=== PATIENT | male | born 1930 | race African-American/Black ===

== ENCOUNTER 2018-01-15 20:15 | Emergency (ER) | payer OTHER ==
[2018-01-15] MEDS: KETOROLAC 15 MG INJ IV (23:03)
[2018-01-15] MEDS: morphine 4 MG/ML VIAL IV (23:03)
[2018-01-15] MEDS: METHOCARBAMOL 750 MG TAB PO (23:08)
== END 2018-01-16 02:03 | disposition home or self-care (01) ==
LOC: E/R 01-16 02:03
DX: M50.30 Other cervical disc degeneration, unspecified cervical region (principal); I10 Essential (primary) hypertension; I50.9 Heart failure, unspecified; M62.838 Other muscle spasm; Z87.891 Personal history of nicotine dependence
CPT/HCPCS: 72125; 93005; 96374; 96375; 99285-25

== ENCOUNTER 2018-05-06 13:36 | Inpatient (IN) | payer OTHER ==
[2018-05-06 14:11] LABS: ADD MAN DIFF? NO
[2018-05-06 14:12] LABS: WHITE BLOOD COUNT 4.1 10^3/ul (4.8-10.8)
[2018-05-06 14:12] LABS: ABNORMAL IP MESSAGE 1; BASOPHILS % 0.7 % (0.0-2.0); EOSINOPHILS # 0.1 10^3/ul (0.0-0.5); EOSINOPHILS % 1.2 % (0.0-7.0); HEMATOCRIT 37.1 % (42.0-52.0); HEMOGLOBIN 11.8 g/dl (14.0-18.0); LYMPHOCYTES # 1.5 10^3/ul (0.8-2.9); LYMPHOCYTES % 37.6 % (15.0-51.0); MEAN CORPUSCULAR HEMOGLOBIN 24.4 pg (29.0-33.0); MEAN CORPUSCULAR HGB CONC 31.8 g/dl (32.0-37.0); MEAN CORPUSCULAR VOLUME 76.7 fl (82.0-101.0); MONOCYTE # 0.4 10^3/ul (0.3-0.9); MONOCYTES % 9.1 % (0.0-11.0); NEUTROPHIL # 2.1 10^3/ul (1.6-7.5); NEUTROPHILS % 51.2 % (39.0-77.0); PLATELET COUNT 137 10^3/UL (140-415); POSITIVE DIFF @See below; RED BLOOD COUNT 4.84 10^6/ul (4.70-6.10); RED CELL DISTRIBUTION WIDTH 17.7 % (11.5-14.5)
[2018-05-06 14:30] LABS: ALANINE AMINOTRANSFERASE 32 IU/L (13-69); ALBUMIN 3.4 g/dl (3.3-4.9); ALBUMIN/GLOBULIN RATIO 1.13; ALKALINE PHOSPHATASE 75 IU/L (42-121); ANION GAP 10 (5-13); ASPARTATE AMINO TRANSFERASE 39 IU/L (15-46); BILIRUBIN,INDIRECT 0.4 mg/dl (0-1.1); BILIRUBIN,TOTAL 0.4 mg/dl (0.2-1.3); BLOOD UREA NITROGEN 10 mg/dl (7-20); CALCIUM 8.7 mg/dl (8.4-10.2); CARBON DIOXIDE 27 mmol/L (21-31); CHLORIDE 104 mmol/L (97-110); GLUCOSE 102 mg/dl (70-220); POTASSIUM 3.8 mmol/L (3.5-5.1); SODIUM 141 mmol/L (135-144); TOTAL PROTEIN 6.4 g/dl (6.1-8.1)
[2018-05-06] MEDS: NITROGLYCERIN 2% 1 GM OINT PKT TD (14:36)
[2018-05-06] MEDS: ASPIRIN 325 MG TAB PO (14:36)
[2018-05-06] MEDS: FUROSEMIDE 20 MG INJ IV (14:37)
[2018-05-06 14:42] LABS: B-TYPE NATRIURETIC PEPTIDE 3200 PG/ML (0-450); TROPONIN-I 0.084 ng/ml (0.000-0.120)
[2018-05-06] MEDS ORDERED: ONDANSETRON 4 MG INJ IV ×2 (16:30→18:00)
[2018-05-06] MEDS ORDERED: ACETAMINOPHEN 325 MG TAB PO ×2 (16:30→18:00)
[2018-05-06] MEDS ORDERED: MAGNESIUM HYDROXIDE 30ML CUP PO (18:00)
[2018-05-06] MEDS ORDERED: BISACODYL 10 MG SUPP PR (18:00)
[2018-05-06] MEDS ORDERED: NACL 0.9% 3 ML SYG IV (18:00)
[2018-05-06] MEDS ORDERED: HYDROCODONE/APAP (5/325) TAB PO (18:00)
[2018-05-06] MEDS ORDERED: METHOCARBAMOL 750 MG TAB PO (18:00)
[2018-05-06] MEDS ORDERED: DOCUSATE SODIUM 100 MG CAP PO (18:00)
[2018-05-06] MEDS: hydrALAzine 20 MG INJ IV (18:32)
[2018-05-06] MEDS: AMLODIPINE 10 MG TAB PO (19:41)
[2018-05-06] MEDS: ENALAPRILAT 1.25 MG INJ IV (19:43)
[2018-05-06 20:16] LABS: CREATINE KINASE 368 IU/L (23-200)
[2018-05-06] MEDS: ATORVASTATIN 40 MG TAB PO (20:16)
[2018-05-06] MEDS: LOSARTAN 50 MG TAB PO (20:17)
[2018-05-06 20:25] LABS: CK INDEX 2.1
[2018-05-06 20:32] LABS: CK-MB 7.57 ng/ml (0.0-2.4)
[2018-05-06 20:34] LABS: TROPONIN-I 0.121 ng/ml (0.000-0.120)
[2018-05-06] MEDS ORDERED: DOXAZOSIN 2 MG TAB PO (21:00)
[2018-05-06] MEDS: ISOSORBIDE MONONITRATE 20 MG TAB PO (22:51)
[2018-05-07] MEDS: ENOXAPARIN 80 MG/0.8 ML SYG SC
[2018-05-07 02:32] LABS: ADD MAN DIFF? NO
[2018-05-07 02:34] LABS: WHITE BLOOD COUNT 4.6 10^3/ul (4.8-10.8)
[2018-05-07 02:34] LABS: BASOPHILS % 0.4 % (0.0-2.0); EOSINOPHILS # 0.1 10^3/ul (0.0-0.5); EOSINOPHILS % 1.1 % (0.0-7.0); HEMATOCRIT 35.5 % (42.0-52.0); HEMOGLOBIN 11.1 g/dl (14.0-18.0); LYMPHOCYTES # 1.4 10^3/ul (0.8-2.9); LYMPHOCYTES % 31.4 % (15.0-51.0); MEAN CORPUSCULAR HEMOGLOBIN 23.8 pg (29.0-33.0); MEAN CORPUSCULAR HGB CONC 31.3 g/dl (32.0-37.0); MEAN CORPUSCULAR VOLUME 76.2 fl (82.0-101.0); MEAN PLATELET VOLUME 10.9 fl (7.4-10.4); MONOCYTE # 0.5 10^3/ul (0.3-0.9); MONOCYTES % 11.2 % (0.0-11.0); NEUTROPHIL # 2.5 10^3/ul (1.6-7.5); NEUTROPHILS % 55.7 % (39.0-77.0); PLATELET COUNT 134 10^3/UL (140-415); RED BLOOD COUNT 4.66 10^6/ul (4.70-6.10); RED CELL DISTRIBUTION WIDTH 17.5 % (11.5-14.5)
[2018-05-07 02:54] LABS: CREATINE KINASE 253 IU/L (23-200)
[2018-05-07 02:56] LABS: ALANINE AMINOTRANSFERASE 30 IU/L (13-69); ALBUMIN 3.1 g/dl (3.3-4.9); ALBUMIN/GLOBULIN RATIO 1.24; ALKALINE PHOSPHATASE 56 IU/L (42-121); ANION GAP 8 (5-13); ASPARTATE AMINO TRANSFERASE 32 IU/L (15-46); BILIRUBIN,INDIRECT 0.4 mg/dl (0-1.1); BILIRUBIN,TOTAL 0.4 mg/dl (0.2-1.3); BLOOD UREA NITROGEN 12 mg/dl (7-20); CALCIUM 8.7 mg/dl (8.4-10.2); CARBON DIOXIDE 34 mmol/L (21-31); CHLORIDE 101 mmol/L (97-110); CREATININE 0.92 mg/dl (0.61-1.24); GLUCOSE 99 mg/dl (70-220); SODIUM 143 mmol/L (135-144); TOTAL PROTEIN 5.6 g/dl (6.1-8.1)
[2018-05-07 03:07] LABS: CK INDEX 2.1
[2018-05-07 03:10] LABS: CK-MB 5.24 ng/ml (0.0-2.4); TROPONIN-I 0.166 ng/ml (0.000-0.120)
[2018-05-07 03:12] LABS: FREE T4 (FREE THYROXINE) 1.77 ng/dl (0.85-1.93)
[2018-05-07] MEDS: FUROSEMIDE 20 MG INJ IV ×2 (06:29→17:37)
[2018-05-07] MEDS: ASPIRIN 81 MG TAB PO (08:03)
[2018-05-07] MEDS: TAMSULOSIN (SR) 0.4 MG CAP PO (08:03)
[2018-05-07] MEDS: LOSARTAN 50 MG TAB PO ×2 (08:03→21:28)
[2018-05-07] MEDS: METOPROLOL (XL) 25 MG TAB PO (08:04)
[2018-05-07] MEDS: ENOXAPARIN 40 MG/0.4 ML SYG SC (08:35)
[2018-05-07 11:08] LABS: CREATINE KINASE 219 IU/L (23-200)
[2018-05-07 11:21] LABS: CK INDEX 2.1
[2018-05-07 11:25] LABS: CK-MB 4.64 ng/ml (0.0-2.4); TROPONIN-I 0.161 ng/ml (0.000-0.120)
[2018-05-07] MEDS: ATORVASTATIN 40 MG TAB PO (21:27)
[2018-05-07] MEDS: ISOSORBIDE MONONITRATE 20 MG TAB PO (21:28)
[2018-05-07] MEDS: AMLODIPINE 10 MG TAB PO (21:28)
[2018-05-08 05:21] LABS: ADD MAN DIFF? NO
[2018-05-08 05:29] LABS: ABNORMAL IP MESSAGE 1; BASOPHILS % 0.5 % (0.0-2.0); EOSINOPHILS # 0.1 10^3/ul (0.0-0.5); EOSINOPHILS % 1.6 % (0.0-7.0); HEMATOCRIT 39.3 % (42.0-52.0); HEMOGLOBIN 12.4 g/dl (14.0-18.0); LYMPHOCYTES # 1.7 10^3/ul (0.8-2.9); LYMPHOCYTES % 38.5 % (15.0-51.0); MEAN CORPUSCULAR HEMOGLOBIN 24.2 pg (29.0-33.0); MEAN CORPUSCULAR HGB CONC 31.6 g/dl (32.0-37.0); MEAN CORPUSCULAR VOLUME 76.8 fl (82.0-101.0); MONOCYTE # 0.6 10^3/ul (0.3-0.9); MONOCYTES % 12.4 % (0.0-11.0); NEUTROPHIL # 2.1 10^3/ul (1.6-7.5); NEUTROPHILS % 46.8 % (39.0-77.0); PLATELET COUNT 152 10^3/UL (140-415); POSITIVE DIFF @See below; RED BLOOD COUNT 5.12 10^6/ul (4.70-6.10); RED CELL DISTRIBUTION WIDTH 17.6 % (11.5-14.5)
[2018-05-08 05:29] LABS: WHITE BLOOD COUNT 4.4 10^3/ul (4.8-10.8)
[2018-05-08 05:56] LABS: ANION GAP 5 (5-13); BLOOD UREA NITROGEN 18 mg/dl (7-20); CALCIUM 9.1 mg/dl (8.4-10.2); CARBON DIOXIDE 35 mmol/L (21-31); CHLORIDE 101 mmol/L (97-110); CREATININE 0.93 mg/dl (0.61-1.24); GLUCOSE 103 mg/dl (70-220); POTASSIUM 4.7 mmol/L (3.5-5.1); SODIUM 141 mmol/L (135-144)
[2018-05-08 06:22] LABS: PHOSPHORUS 4.8 mg/dl (2.5-4.9)
[2018-05-08] MEDS: FUROSEMIDE 20 MG INJ IV (07:05)
[2018-05-08] MEDS: LOSARTAN 50 MG TAB PO ×2 (08:08→21:16)
[2018-05-08] MEDS: ASPIRIN 81 MG TAB PO (08:08)
[2018-05-08] MEDS: METOPROLOL (XL) 25 MG TAB PO (08:08)
[2018-05-08] MEDS: TAMSULOSIN (SR) 0.4 MG CAP PO (08:08)
[2018-05-08] MEDS: ENOXAPARIN 40 MG/0.4 ML SYG SC (08:28)
[2018-05-08 11:34] LABS: CK-MB 4.34 ng/ml (0.0-2.4); TROPONIN-I 0.104 ng/ml (0.000-0.120)
[2018-05-08 11:37] LABS: CK INDEX 1.9; CREATINE KINASE 223 IU/L (23-200)
[2018-05-08] MEDS: REGADENOSON 0.4 MG/5 ML SYG (12:29)
[2018-05-08] MEDS: FUROSEMIDE 20 MG TAB PO (17:41)
[2018-05-08] MEDS: ISOSORBIDE MONONITRATE 20 MG TAB PO (21:16)
[2018-05-08] MEDS: ATORVASTATIN 40 MG TAB PO (21:16)
[2018-05-08] MEDS: AMLODIPINE 10 MG TAB PO (21:17)
[2018-05-09 06:08] LABS: ADD MAN DIFF? NO
[2018-05-09 06:16] LABS: WHITE BLOOD COUNT 4.2 10^3/ul (4.8-10.8)
[2018-05-09 06:16] LABS: ABNORMAL IP MESSAGE 1; BASOPHILS % 0.7 % (0.0-2.0); EOSINOPHILS # 0.1 10^3/ul (0.0-0.5); EOSINOPHILS % 1.7 % (0.0-7.0); HEMATOCRIT 37.6 % (42.0-52.0); LYMPHOCYTES # 1.5 10^3/ul (0.8-2.9); LYMPHOCYTES % 35.7 % (15.0-51.0); MEAN CORPUSCULAR HEMOGLOBIN 24.3 pg (29.0-33.0); MEAN CORPUSCULAR HGB CONC 31.9 g/dl (32.0-37.0); MEAN CORPUSCULAR VOLUME 76.1 fl (82.0-101.0); MONOCYTE # 0.5 10^3/ul (0.3-0.9); MONOCYTES % 11.3 % (0.0-11.0); NEUTROPHIL # 2.1 10^3/ul (1.6-7.5); NEUTROPHILS % 50.4 % (39.0-77.0); PLATELET COUNT 154 10^3/UL (140-415); POSITIVE DIFF @See below; RED BLOOD COUNT 4.94 10^6/ul (4.70-6.10); RED CELL DISTRIBUTION WIDTH 17.2 % (11.5-14.5)
[2018-05-09 06:38] LABS: ANION GAP 6 (5-13); BLOOD UREA NITROGEN 17 mg/dl (7-20); CALCIUM 8.7 mg/dl (8.4-10.2); CARBON DIOXIDE 32 mmol/L (21-31); CHLORIDE 101 mmol/L (97-110); CREATININE 0.78 mg/dl (0.61-1.24); GLUCOSE 98 mg/dl (70-220); POTASSIUM 3.7 mmol/L (3.5-5.1); SODIUM 139 mmol/L (135-144)
[2018-05-09] MEDS: FUROSEMIDE 20 MG TAB PO ×2 (06:49→18:33)
[2018-05-09] MEDS: DIAZEPAM 5 MG TAB PO (07:00)
[2018-05-09] MEDS: DIPHENHYDRAMINE 50 MG CAP PO (07:00)
[2018-05-09] MEDS: ASPIRIN 81 MG TAB PO (08:48)
[2018-05-09] MEDS: TAMSULOSIN (SR) 0.4 MG CAP PO (08:48)
[2018-05-09] MEDS: LOSARTAN 50 MG TAB PO ×2 (08:49→21:48)
[2018-05-09] MEDS: METOPROLOL (XL) 25 MG TAB PO (08:49)
[2018-05-09] MEDS ORDERED: SOD CHLORIDE 0.9% 500 ML (09:28)
[2018-05-09] MEDS ORDERED: HEPARIN 1000 UNITS/ML 10 ML INJ (09:28)
[2018-05-09] MEDS ORDERED: LIDOCAINE 1% (MDV) 20 ML INJ (09:28)
[2018-05-09] MEDS ORDERED: IODIXANOL LOCM 100 ML BTL (09:28)
[2018-05-09] MEDS ORDERED: MIDAZOLAM 1 MG/ML 2 ML INJ (09:29)
[2018-05-09] MEDS ORDERED: VERAPAMIL 5 MG INJ (09:29)
[2018-05-09] MEDS ORDERED: NITROGLYCERIN (IC) 100 MCG/ML INJ (09:29)
[2018-05-09] MEDS ORDERED: FENTAnyl 50 MCG/ML VIAL (09:29)
[2018-05-09] MEDS ORDERED: IODIXANOL LOCM 50 ML BTL (10:29)
[2018-05-09] MEDS ORDERED: DOPamine-D5W 1.6 MG/ML 250 ML (10:34)
[2018-05-09] MEDS ORDERED: TICAGRELOR 90 MG TABLET (11:26)
[2018-05-09] MEDS ORDERED: ASPIRIN 325 MG TAB (11:27)
[2018-05-09] MEDS ORDERED: ONDANSETRON 4 MG INJ IV (11:30)
[2018-05-09] MEDS ORDERED: ACETAMINOPHEN 325 MG TAB PO (11:30)
[2018-05-09] MEDS ORDERED: AL HYDROX/MG HYDROX/SIMETH 30 ML CUP PO (11:30)
[2018-05-09] MEDS ORDERED: OXYCODONE/ACETAMINOPHEN (5/325) TAB PO (11:30)
[2018-05-09] MEDS ORDERED: morphine 2 MG INJ IV (11:30)
[2018-05-09] MEDS ORDERED: ZOLPIDEM 5 MG TAB PO (11:30)
[2018-05-09] MEDS: SOD CHLORIDE 0.9% 1,000 ML IV (14:00)
[2018-05-09] MEDS: ISOSORBIDE MONONITRATE 20 MG TAB PO (21:47)
[2018-05-09] MEDS: AMLODIPINE 10 MG TAB PO (21:49)
[2018-05-09] MEDS: ATORVASTATIN 40 MG TAB PO (21:49)
[2018-05-09] MEDS: TICAGRELOR 90 MG TABLET PO (21:53)
[2018-05-09] MEDS: NITROGLYCERIN (SL) 0.4 MG TAB SL (23:57)
[2018-05-10 04:42] LABS: ADD MAN DIFF? NO
[2018-05-10 04:44] LABS: WHITE BLOOD COUNT 6.1 10^3/ul (4.8-10.8)
[2018-05-10 04:44] LABS: ABNORMAL IP MESSAGE 1; BASOPHILS % 0.3 % (0.0-2.0); EOSINOPHILS % 0.3 % (0.0-7.0); HEMATOCRIT 37.4 % (42.0-52.0); HEMOGLOBIN 12.3 g/dl (14.0-18.0); LYMPHOCYTES # 1.1 10^3/ul (0.8-2.9); LYMPHOCYTES % 17.2 % (15.0-51.0); MEAN CORPUSCULAR HEMOGLOBIN 24.3 pg (29.0-33.0); MEAN CORPUSCULAR HGB CONC 32.9 g/dl (32.0-37.0); MEAN CORPUSCULAR VOLUME 73.9 fl (82.0-101.0); MEAN PLATELET VOLUME 12.1 fl (7.4-10.4); MONOCYTE # 0.4 10^3/ul (0.3-0.9); MONOCYTES % 7.2 % (0.0-11.0); NEUTROPHIL # 4.6 10^3/ul (1.6-7.5); NEUTROPHILS % 74.7 % (39.0-77.0); PLATELET COUNT 166 10^3/UL (140-415); POSITIVE DIFF @See below; RED BLOOD COUNT 5.06 10^6/ul (4.70-6.10); RED CELL DISTRIBUTION WIDTH 17.3 % (11.5-14.5)
[2018-05-10 05:03] LABS: MAGNESIUM 1.8 mg/dl (1.7-2.5)
[2018-05-10 05:03] LABS: PHOSPHORUS 4.3 mg/dl (2.5-4.9)
[2018-05-10 05:08] LABS: ANION GAP 8 (5-13); BLOOD UREA NITROGEN 17 mg/dl (7-20); CALCIUM 8.7 mg/dl (8.4-10.2); CARBON DIOXIDE 29 mmol/L (21-31); CHLORIDE 103 mmol/L (97-110); CREATININE 0.86 mg/dl (0.61-1.24); GLUCOSE 104 mg/dl (70-220); POTASSIUM 3.7 mmol/L (3.5-5.1); SODIUM 140 mmol/L (135-144)
[2018-05-10] MEDS: FUROSEMIDE 20 MG TAB PO (06:01)
[2018-05-10] MEDS: LOSARTAN 50 MG TAB PO (08:06)
[2018-05-10] MEDS: METOPROLOL (XL) 25 MG TAB PO (08:06)
[2018-05-10] MEDS: ASPIRIN (EC) 81 MG TAB PO (08:06)
[2018-05-10] MEDS: TAMSULOSIN (SR) 0.4 MG CAP PO (08:07)
[2018-05-10] MEDS: TICAGRELOR 90 MG TABLET PO (08:16)
== END 2018-05-10 13:25 | disposition home health service (06) | DRG 246 ==
LOC: ICU 05-09 10:48 → E/R 13:36 → 6WM 16:16
PROC: 027034Z Dilation of Coronary Artery, One Artery with Drug-eluting Intraluminal Device, Percutaneous Approach (ICD-10-PCS; principal; 2018-05-09 09:25)
PROC: 02703ZZ Dilation of Coronary Artery, One Artery, Percutaneous Approach (ICD-10-PCS; 2018-05-09 09:25)
PROC: 4A023N7 Measurement of Cardiac Sampling and Pressure, Left Heart, Percutaneous Approach (ICD-10-PCS; 2018-05-09 09:25)
PROC: B2111ZZ Fluoroscopy of Multiple Coronary Arteries using Low Osmolar Contrast (ICD-10-PCS; 2018-05-09 09:25)
DX: I21.4 Non-ST elevation (NSTEMI) myocardial infarction (principal); I50.33 Acute on chronic diastolic (congestive) heart failure; I16.0 Hypertensive urgency; I11.0 Hypertensive heart disease with heart failure; Z87.891 Personal history of nicotine dependence; E78.5 Hyperlipidemia, unspecified; I73.9 Peripheral vascular disease, unspecified; N40.0 Benign prostatic hyperplasia without lower urinary tract symptoms; I25.10 Atherosclerotic heart disease of native coronary artery without angina pectoris; I95.89 Other hypotension; R00.1 Bradycardia, unspecified
CPT/HCPCS: 36415; 71045; 71046; 78452; 80048; 80053; 82550; 82553; 83735; 83880; 84100; 84439; 84443; 84484; 85025; 87081; 93005; 93017; 93306; 93458; 96374; 99285-25; G0378

== ENCOUNTER 2018-05-17 15:30 | Inpatient (IN) | payer OTHER ==
[2018-05-17 15:48] LABS: ADD MAN DIFF? NO
[2018-05-17 15:49] LABS: ABNORMAL IP MESSAGE 1; BASOPHILS % 0.9 % (0.0-2.0); EOSINOPHILS # 0.3 10^3/ul (0.0-0.5); EOSINOPHILS % 5.5 % (0.0-7.0); HEMATOCRIT 39.3 % (42.0-52.0); HEMOGLOBIN 12.8 g/dl (14.0-18.0); LYMPHOCYTES # 1.8 10^3/ul (0.8-2.9); LYMPHOCYTES % 39.2 % (15.0-51.0); MEAN CORPUSCULAR HEMOGLOBIN 24.1 pg (29.0-33.0); MEAN CORPUSCULAR HGB CONC 32.6 g/dl (32.0-37.0); MEAN PLATELET VOLUME 11.5 fl (7.4-10.4); MONOCYTE # 0.4 10^3/ul (0.3-0.9); MONOCYTES % 8.5 % (0.0-11.0); NEUTROPHIL # 2.1 10^3/ul (1.6-7.5); NEUTROPHILS % 45.7 % (39.0-77.0); PLATELET COUNT 173 10^3/UL (140-415); POSITIVE DIFF @See below; RED BLOOD COUNT 5.31 10^6/ul (4.70-6.10); RED CELL DISTRIBUTION WIDTH 16.8 % (11.5-14.5)
[2018-05-17 15:49] LABS: WHITE BLOOD COUNT 4.6 10^3/ul (4.8-10.8)
[2018-05-17 16:09] LABS: ANION GAP 9 (5-13); BLOOD UREA NITROGEN 12 mg/dl (7-20); CALCIUM 9.1 mg/dl (8.4-10.2); CARBON DIOXIDE 29 mmol/L (21-31); CHLORIDE 101 mmol/L (97-110); CREATININE 0.83 mg/dl (0.61-1.24); GLUCOSE 119 mg/dl (70-220); POTASSIUM 3.4 mmol/L (3.5-5.1); SODIUM 139 mmol/L (135-144)
[2018-05-17] MEDS ORDERED: predniSONE 20 MG TAB PO (16:11)
[2018-05-17] MEDS ORDERED: ALBUTEROL 0.5% (NEB) 2.5 MG/0.5 ML AMP INH (16:11)
[2018-05-17] MEDS: SOD CHLORIDE 0.9% 500 ML IV (16:21)
[2018-05-17 16:24] LABS: TROPONIN-I 0.202 ng/ml (0.000-0.120)
[2018-05-17] MEDS: ASPIRIN 81 MG TAB PO (17:29)
[2018-05-17 17:33] LABS: ADD UMIC NO; UR ASCORBIC ACID NEGATIVE (NEGATIVE); UR BILIRUBIN (Dip) NEGATIVE (NEGATIVE); UR BLOOD (Dip) NEGATIVE (NEGATIVE); UR CLARITY CLEAR (CLEAR); UR COLOR YELLOW (YELLOW); UR GLUCOSE (Dip) NEGATIVE (NEGATIVE); UR KETONES (Dip) NEGATIVE (NEGATIVE); UR LEUKOCYTE ESTERASE (Dip) NEGATIVE Leu/ul (NEGATIVE); UR NITRITE (Dip) NEGATIVE (NEGATIVE); UR SPECIFIC GRAVITY (Dip) 1.009 (1.003-1.030); UR TOTAL PROTEIN (Dip) NEGATIVE (NEGATIVE); UR UROBILINOGEN (Dip) 1+ mg/dL (NEGATIVE)
[2018-05-17] MEDS ORDERED: ONDANSETRON 4 MG INJ IV ×2 (18:00→19:00)
[2018-05-17] MEDS ORDERED: ACETAMINOPHEN 325 MG TAB PO ×2 (18:00→19:00)
[2018-05-17] MEDS ORDERED: morphine 2 MG INJ IV (19:00)
[2018-05-17] MEDS ORDERED: MINOXIDIL 2.5 MG TAB PO (19:00)
[2018-05-17] MEDS ORDERED: METHOCARBAMOL 750 MG TAB PO (19:00)
[2018-05-17] MEDS: SOD CHLORIDE 0.9% 1,000 ML IV (19:13)
[2018-05-17] MEDS: DOXAZOSIN 2 MG TAB PO (21:00)
[2018-05-17] MEDS: TICAGRELOR 90 MG TABLET PO (22:38)
[2018-05-17] MEDS: AMLODIPINE 10 MG TAB PO (22:41)
[2018-05-17] MEDS: ISOSORBIDE MONONITRATE 20 MG TAB PO (23:20)
[2018-05-17 23:26] LABS: TROPONIN-I 0.202 ng/ml (0.000-0.120)
[2018-05-18] MEDS: SOD CHLORIDE 0.9% 1,000 ML IV ×2 (05:13→15:00)
[2018-05-18 06:24] LABS: ADD MAN DIFF? NO
[2018-05-18 06:36] LABS: ABNORMAL IP MESSAGE 1; BASOPHIL # 0.1 10^3/ul (0.0-0.1); BASOPHILS % 1.1 % (0.0-2.0); EOSINOPHILS # 0.3 10^3/ul (0.0-0.5); EOSINOPHILS % 7.6 % (0.0-7.0); HEMATOCRIT 34.9 % (42.0-52.0); HEMOGLOBIN 11.3 g/dl (14.0-18.0); LYMPHOCYTES # 1.6 10^3/ul (0.8-2.9); MEAN CORPUSCULAR HEMOGLOBIN 24.2 pg (29.0-33.0); MEAN CORPUSCULAR HGB CONC 32.4 g/dl (32.0-37.0); MEAN CORPUSCULAR VOLUME 74.7 fl (82.0-101.0); MEAN PLATELET VOLUME 12.4 fl (7.4-10.4); MONOCYTE # 0.5 10^3/ul (0.3-0.9); MONOCYTES % 10.8 % (0.0-11.0); NEUTROPHILS % 44.1 % (39.0-77.0); PLATELET COUNT 168 10^3/UL (140-415); POSITIVE DIFF @See below; RED BLOOD COUNT 4.67 10^6/ul (4.70-6.10); RED CELL DISTRIBUTION WIDTH 16.9 % (11.5-14.5)
[2018-05-18 06:36] LABS: WHITE BLOOD COUNT 4.5 10^3/ul (4.8-10.8)
[2018-05-18 07:07] LABS: ANION GAP 5 (5-13); BLOOD UREA NITROGEN 13 mg/dl (7-20); CALCIUM 8.4 mg/dl (8.4-10.2); CARBON DIOXIDE 30 mmol/L (21-31); CHLORIDE 106 mmol/L (97-110); CREATININE 0.83 mg/dl (0.61-1.24); GLUCOSE 102 mg/dl (70-220); POTASSIUM 3.1 mmol/L (3.5-5.1); SODIUM 141 mmol/L (135-144)
[2018-05-18 07:11] LABS: TROPONIN-I 0.187 ng/ml (0.000-0.120)
[2018-05-18] MEDS: ASPIRIN (EC) 81 MG TAB PO (08:39)
[2018-05-18] MEDS: LOSARTAN 50 MG TAB PO (08:40)
[2018-05-18] MEDS: CHOLECALCIFEROL 1,000 UNIT TAB PO (08:40)
[2018-05-18] MEDS: METOPROLOL (XL) 25 MG TAB PO (08:42)
[2018-05-18] MEDS: TICAGRELOR 90 MG TABLET PO (09:33)
[2018-05-18 09:57] LABS: CREATINE KINASE 250 IU/L (23-200)
[2018-05-18 10:15] LABS: CK-MB 3.74 ng/ml (0.0-2.4)
[2018-05-18] MEDS: POTASSIUM CHLORIDE (SR) 20 MEQ TAB PO ×3 (10:40→13:40)
[2018-05-18] MEDS ORDERED: ATORVASTATIN 20 MG TAB PO (21:00)
== END 2018-05-18 17:04 | disposition home or self-care (01) | DRG 641 ==
LOC: E/R 15:30 → TEL 22:10
DX: E86.0 Dehydration (principal); R07.2 Precordial pain; I25.10 Atherosclerotic heart disease of native coronary artery without angina pectoris; Z72.0 Tobacco use; E87.6 Hypokalemia; I11.0 Hypertensive heart disease with heart failure; I50.9 Heart failure, unspecified; Z95.5 Presence of coronary angioplasty implant and graft; I25.2 Old myocardial infarction
CPT/HCPCS: 36415; 71045; 80048; 81003; 82550; 82553; 84484; 85025; 87081; 93005; 96360; 97162; 99285-25

== ENCOUNTER 2018-11-24 10:08 | Emergency (ER) | payer OTHER ==
[2018-11-24] MEDS: METHYLPREDNISOLONE 125 MG INJ IV (10:50)
[2018-11-24 10:52] LABS: ADD MAN DIFF? NO
[2018-11-24] MEDS: IPRATROPIUM (NEB) 0.5 MG/2.5 ML AMP INH (10:53)
[2018-11-24] MEDS: ALBUTEROL 0.5% (NEB) 2.5 MG/0.5 ML AMP INH (10:53)
[2018-11-24 10:56] LABS: WHITE BLOOD COUNT 6.4 10^3/ul (4.8-10.8)
[2018-11-24 10:56] LABS: BASOPHILS % 0.3 % (0.0-2.0); EOSINOPHILS % 0.3 % (0.0-7.0); HEMATOCRIT 40.4 % (42.0-52.0); HEMOGLOBIN 12.9 g/dl (14.0-18.0); LYMPHOCYTES # 2.2 10^3/ul (0.8-2.9); LYMPHOCYTES % 34.6 % (15.0-51.0); MEAN CORPUSCULAR HEMOGLOBIN 25.2 pg (29.0-33.0); MEAN CORPUSCULAR HGB CONC 31.9 g/dl (32.0-37.0); MEAN CORPUSCULAR VOLUME 78.9 fl (82.0-101.0); MEAN PLATELET VOLUME 12.2 fl (7.4-10.4); MONOCYTE # 0.5 10^3/ul (0.3-0.9); MONOCYTES % 7.5 % (0.0-11.0); NEUTROPHIL # 3.7 10^3/ul (1.6-7.5); NEUTROPHILS % 56.8 % (39.0-77.0); PLATELET COUNT 183 10^3/UL (140-415); RED BLOOD COUNT 5.12 10^6/ul (4.70-6.10); RED CELL DISTRIBUTION WIDTH 15.9 % (11.5-14.5)
[2018-11-24 11:11] LABS: ALANINE AMINOTRANSFERASE 22 IU/L (13-69); ALBUMIN 4.1 g/dl (3.3-4.9); ALBUMIN/GLOBULIN RATIO 1.24; ALKALINE PHOSPHATASE 72 IU/L (42-121); ANION GAP 13 (5-13); ASPARTATE AMINO TRANSFERASE 37 IU/L (15-46); BILIRUBIN,INDIRECT 0.7 mg/dl (0-1.1); BILIRUBIN,TOTAL 0.7 mg/dl (0.2-1.3); BLOOD UREA NITROGEN 20 mg/dl (7-20); CALCIUM 9.5 mg/dl (8.4-10.2); CARBON DIOXIDE 25 mmol/L (21-31); CHLORIDE 104 mmol/L (97-110); CREATINE KINASE 290 IU/L (23-200); CREATININE 1.22 mg/dl (0.61-1.24); GLUCOSE 103 mg/dl (70-220); POTASSIUM 4.9 mmol/L (3.5-5.1); SODIUM 142 mmol/L (135-144); TOTAL PROTEIN 7.4 g/dl (6.1-8.1)
[2018-11-24 11:15] LABS: PARTIAL THROMBOPLASTIN TIME 32.9 Sec (23.0-35.0); PROTIME 13.3 Sec (11.9-14.9)
[2018-11-24 11:24] LABS: CK INDEX 1.9; TROPONIN-I 0.088 ng/ml (0.000-0.120)
[2018-11-24 11:27] LABS: CK-MB 5.43 ng/ml (0.0-2.4)
[2018-11-24 11:54] LABS: B-TYPE NATRIURETIC PEPTIDE 1240 PG/ML (0-450)
[2018-11-24 12:50] LABS: ADD UMIC YES; UR ASCORBIC ACID NEGATIVE (NEGATIVE); UR BILIRUBIN (Dip) NEGATIVE (NEGATIVE); UR BLOOD (Dip) NEGATIVE (NEGATIVE); UR CLARITY CLEAR (CLEAR); UR COLOR YELLOW (YELLOW); UR GLUCOSE (Dip) NEGATIVE (NEGATIVE); UR KETONES (Dip) TRACE mg/dL (NEGATIVE); UR LEUKOCYTE ESTERASE (Dip) TRACE Leu/ul (NEGATIVE); UR NITRITE (Dip) NEGATIVE (NEGATIVE); UR RBC 1 /HPF (0-5); UR SPECIFIC GRAVITY (Dip) 1.014 (1.003-1.030); UR TOTAL PROTEIN (Dip) NEGATIVE (NEGATIVE); UR UROBILINOGEN (Dip) 2+ mg/dL (NEGATIVE); UR WBC 1 /HPF (0-5)
[2018-11-24] MEDS: ALBUTEROL/IPRATROPIUM (NEB) 3 ML AMP HHN (12:52)
== END 2018-11-24 14:12 | disposition home or self-care (01) ==
LOC: E/R 10:08
DX: J44.1 Chronic obstructive pulmonary disease with (acute) exacerbation (principal); I50.9 Heart failure, unspecified; I10 Essential (primary) hypertension; Z87.891 Personal history of nicotine dependence
CPT/HCPCS: 71045; 80053; 81001; 82550; 82553; 83880; 84484; 85025; 85610; 85730; 87040-91; 93005; 94640; 94644; 94664; 96374; 99285-25

== ENCOUNTER 2018-12-25 10:50 | Emergency (ER) | payer OTHER, MEDICAID ==
[2018-12-25 14:46] LABS: ADD MAN DIFF? NO
[2018-12-25 14:48] LABS: WHITE BLOOD COUNT 4.7 10^3/ul (4.8-10.8)
[2018-12-25 14:48] LABS: BASOPHILS % 0.4 % (0.0-2.0); EOSINOPHILS % 0.6 % (0.0-7.0); HEMATOCRIT 39.6 % (42.0-52.0); HEMOGLOBIN 12.7 g/dl (14.0-18.0); LYMPHOCYTES # 1.1 10^3/ul (0.8-2.9); LYMPHOCYTES % 23.4 % (15.0-51.0); MEAN CORPUSCULAR HEMOGLOBIN 25.5 pg (29.0-33.0); MEAN CORPUSCULAR HGB CONC 32.1 g/dl (32.0-37.0); MEAN CORPUSCULAR VOLUME 79.5 fl (82.0-101.0); MEAN PLATELET VOLUME 11.5 fl (7.4-10.4); MONOCYTE # 0.5 10^3/ul (0.3-0.9); MONOCYTES % 10.6 % (0.0-11.0); NEUTROPHILS % 64.6 % (39.0-77.0); PLATELET COUNT 179 10^3/UL (140-415); RED BLOOD COUNT 4.98 10^6/ul (4.70-6.10)
[2018-12-25 15:08] LABS: ANION GAP 9 (5-13); BLOOD UREA NITROGEN 16 mg/dl (7-20); CARBON DIOXIDE 30 mmol/L (21-31); CHLORIDE 100 mmol/L (97-110); CREATININE 1.03 mg/dl (0.61-1.24); GLUCOSE 111 mg/dl (70-220); POTASSIUM 4.1 mmol/L (3.5-5.1); SODIUM 139 mmol/L (135-144)
[2018-12-25 15:19] LABS: TROPONIN-I 0.074 ng/ml (0.000-0.120)
[2018-12-25] MEDS: BISACODYL (EC) 5 MG TAB PO (15:54)
== END 2018-12-25 16:38 | disposition home or self-care (01) ==
LOC: E/R 10:50
DX: R07.9 Chest pain, unspecified (principal); K59.00 Constipation, unspecified; F17.210 Nicotine dependence, cigarettes, uncomplicated; I11.0 Hypertensive heart disease with heart failure; I50.9 Heart failure, unspecified; J44.9 Chronic obstructive pulmonary disease, unspecified; Z79.02 Long term (current) use of antithrombotics/antiplatelets; Z79.82 Long term (current) use of aspirin
CPT/HCPCS: 36415; 71045; 80048; 84484; 85025; 93005; 99285-25